=== PATIENT | female | born 1945 | race Caucasian/White ===

== ENCOUNTER 2017-03-31 06:56 | Day surgery (SDC) | payer OTHER ==
[2017-03-25 10:44] LABS: BASOPHILS 0.4 %; BASOPHILS ABSOLUTE 0.03 10/3/uL (0.0-0.16); EOSINOPHILS 4.3 %; EOSINOPHILS ABSOLUTE 0.34 10/3/uL (0.0-0.53); IMMATURE GRANULOCYTES 0.3 %; IMMATURE GRANULOCYTES ABSOLUTE 0.02 10/3/uL (0.0-0.11); LYMPHOCYTES 15.8 %; LYMPHOCYTES ABSOLUTE 1.25 10/3/uL (0.67-4.30); MEAN CORPUS HGB CONC 32.5 g/dL (32.0-36.0); MEAN CORPUSCULAR HEMOGLOB 27.1 pg (26.0-34.0); MEAN CORPUSCULAR VOLUME 83.3 fL (80-100); MEAN PLATELET VOLUME 8.9 fL (9.2-13.0); MONOCYTES 6.8 %; MONOCYTES ABSOLUTE 0.54 10/3/uL (0.21-1.20); NEUTROPHILS 72.4 %; NEUTROPHILS ABSOLUTE 5.72 10/3/uL (2.02-8.40); PLATELET COUNT 174 10/3/uL (150-400); RBC DISTRIBUTION WIDTH 14.9 % (12.0-16.0); WHITE BLOOD CELLS 7.9 10/3/uL (4.5-10.5)
[2017-03-25 10:47] LABS: MANUAL DIFF NO %
[2017-03-25 10:55] LABS: BUN (BLOOD UREA NITROGEN) 16 MG/DL (6-23); CALCIUM, SERUM 10.1 MG/DL (8.5-10.4); CHLORIDE, SERUM 104 MMOL/L (96-112); CO2 (CARBON DIOXIDE) 30 MMOL/L (24-34); CREATININE 1.07 MG/DL (0.55-1.02); GFR AFRICAN AMERICAN 61 ML/MIN (>=60); GFR NON AFRICAN AMERICAN 53 ML/MIN (>=60); GLUCOSE, SERUM 144 MG/DL (60-99); SODIUM, SERUM 140 MMOL/L (135-148)
--- NOTE | ~2017-03-31 | OP ---
Record Of Operation [facility] [address] [place]. 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 PROCEDURE: 1. Wide local excision with frozen margins of left nasal alar basal cell carcinoma. 2. Wide local excision of basal cell carcinoma of the nasal tip. 3. Full-thickness skin graft to the left nasal ala. 4. Full-thickness skin graft to the nasal tip. SURGEON: Peter Brown MD. ANESTHESIA: Monitored anesthesia care. ESTIMATED BLOOD LOSS: Less than 5 mL. COMPLICATIONS: None. SPECIMENS: 1. Shave biopsy of nasal tip. 2. Wide local excision of left nasal ala. 3. Wide local excision of nasal tip. 4. Re-excision margins, 12-3. 5. Re-excision margins, 6-9 of the left nasal ala specimen. STATEMENT OF MEDICAL NECESSITY: This is a 71-year-old female, referred to me for suspicious nonhealing lesion of nasal tip. Shave biopsy did demonstrate a nodular-type basal cell carcinoma. She also had another spot that was not healing on nasal tip and I requested her to go to the OR, so we could clear these with frozen and fast margins and reconstruct with skin grafts. STATEMENT OF OPERATION: The patient was brought to the operating room in supine position and transferred to the operating room table. All pressure points were padded and monitored anesthesia care was established. The lesions were outlined with a surgical marking pen. They were infiltrated with 1% lidocaine with epinephrine. I also infiltrated the area of about 2 x 2 cm in the supraclavicular fossa on the right-hand side. She was then prepped and draped in the usual fashion. I started by doing a shave biopsy of the unknown nasal tip lesion. This was sent immediately for frozen. I then did a wide local excision of the nasal alar lesion with 3 mm margins down to the level of the nasal alar perichondrium. This was marked with sutures, oriented, and sent to the pathologist for frozen margins. First, the shave biopsy came back as basal cell carcinoma. Then, I did a wide local excision of that area as well and oriented appropriately, sent back to the pathologist. The pathologist returned with a diagnosis of positive margins in the 12-3 and 6-9 locations on the initial Record Of Operation [address] [address] NAME: JESSICA ANGELES : [birth year] STATUS : [facility] PAT#: [id number] AGE: 71 ADM/REG DATE : 03/31/17 MR#: [id number] REPORT SERV DATE: 03/31/17 DICTATED BY: PETER BROWN DATE: 03/31/17 REPORT STATUS : Draft TRANSCRIBED BY: HERIBERTO DATE: 03/31/17 nasal alar specimen. These were re-excised, re-oriented, and sent back. Final diagnosis on the central tip wide local excision came back as negative margins and the re-excision also cleared margins. At this point, I harvested a 2 x 2 cm full-thickness graft from the supraclavicular fossa. This was then closed using 4-0 Vicryl, 5-0 fast, and Dermabond glue. The full-thickness grafts were and applied directly to the wound, the left nasal ala first and was secured with 6-0 fast absorbing gut suture in interrupted fashion. This was also repeated for the nasal tip lesion. A bolster dressing made of Xeroform gauze was applied to the nasal alar lesion and secured with 5-0 nylon sutures. This concluded the case. The patient was turned back over to Anesthesia, where she awoke, was extubated, and transferred to the PACU in stable condition. PS/MODL Peter Brown MD / [id number] CC: MD Abraham Tyler M.D.
[~2017-03-31 06:56] MED LIST: ASAB PO; DIOVAN HCT320 MG/25 PO; KDUR20 PO; LIPITOR40 PO; NORV5 PO; NOVOPEN SC; TRESIBA FL200 UNIT/1 SC; VICTOZA18 MG/3 ML SC; XANAX1 MG PO; ZOL100 PO
== END 2017-03-31 13:48 | disposition home or self-care (01) ==
LOC: SDC 06:56
PROVIDERS: Otolaryngology
PROC: 0HR1X73 Replacement of Face Skin with Autologous Tissue Substitute, Full Thickness, External Approach (ICD-10-PCS; 2017-03-31)
PROC: 0HR1XJ3 Replacement of Face Skin with Synthetic Substitute, Full Thickness, External Approach (ICD-10-PCS; principal; 2017-03-31 08:30)
DX: C44.311 Basal cell carcinoma of skin of nose (principal); E11.9 Type 2 diabetes mellitus without complications; I10 Essential (primary) hypertension; E66.9 Obesity, unspecified; Z68.43 Body mass index [BMI] 50.0-59.9, adult; F41.0 Panic disorder [episodic paroxysmal anxiety]; Z88.5 Allergy status to narcotic agent; Z79.4 Long term (current) use of insulin; Z98.890 Other specified postprocedural states
CPT/HCPCS: 80048; 82962; 85025; 88305; 88331; 93005; J0690; J2250; J2405; J3010